=== PATIENT | female | born 1930 | race African-American/Black ===

== ENCOUNTER 2018-12-10 19:20 | Emergency (ER) | payer OTHER ==
[~2018-12-10] VITALS: Ht 167.6 cm; Wt 63.6 kg
[2018-12-10 19:24] VITALS: Ht 167.6 cm; Wt 63.6 kg
[2018-12-10] MEDS ORDERED: SOD CHLORIDE 0.9% 1,000 ML IV STA (19:27)
[2018-12-10] MEDS ORDERED: MECLIZINE 12.5 MG TAB PO ONE (19:30)
[2018-12-10] MEDS ORDERED: MECL12.574 PO (21:49)
--- NOTE | 2018-12-10 21:52 | ERD ---
ER Documentation Chief Complaint Chief Complaint [id number],from home,dizziness,denies NV,WARE,SOB,numbness,pain,hx HTN HPI She is a an 88-year-old female who was brought in by ambulance for dizziness. The patient's sugar was within normal limits by paramedics. She said that it started suddenly at 1730. She said the dizziness is now gone but she was still feeling some nausea. When she had the dizziness she felt like the room was s pinning. She was given Zofran by paramedics. She lives with her daughter. Upon review of old medical records this is the patient's first visit to the emergency department. She does not remember the name of her primary doctor. ROS All systems reviewed and are negative except as per history of present illness. Medications Home Meds Active Scripts Meclizine Hcl* (Antivert*) 12.5 Mg Tab, 25 MG PO Q6H PRN for DIZZINESS, #20 TAB Prov:EULALIA COOK MD 12/10/18 Allergies Allergies: Coded Allergies: No Known Allergy (Unverified , 12/10/18) PMhx/Soc History of Surgery: Yes (KNEE SURGERY) Anesthesia Reaction: No Hx Neurological Disorder: Yes (ALZHEIMERS) Hx Respiratory Disorders: No Hx Cardiac Disorders: Yes (HTN) Hx Psychiatric Problems: No Hx Miscellaneous Medical Probl: No Hx Alcohol Use: No Hx Substance Use: No Hx Tobacco Use: No Smoking Status: Never smoker Physical Exam Vitals Vital Signs Date Temp Pulse Resp B/P (MAP) Pulse Ox O2 O2 Flow FiO2 Time Delivery Rate 12/10/18 74 14 149/69 100 Room Air 20:57 (95) 12/10/18 97.6 80 18 145/70 100 19:24 (95) Physical Exam Const: No acute distress Head: Atraumatic Eyes: Normal Conjunctiva ENT: Normal External Ears, Nose and Mouth. Neck: Full range of motion. No meningismus. Resp: Clear to auscultation bilaterally Cardio: Regular rate and rhythm, no murmurs Abd: Soft, non tender, non distended. Normal bowel sounds Skin: No petechiae or rashes Back: No midline or flank tenderness Ext: No cyanosis, or edema Neur: Awake and alert Psych: Normal Mood and Affect Result Diagram: 12/10/18205712/10/182057 Results 24 hrs Laboratory Tests Test 5/6/19 20:58 White Blood Count 7.8 10^3/ul Red Blood Count 3.85 10^6/ul Hemoglobin 12.0 g/dl Hematocrit 36.4 % Mean Corpuscular Volume 94.5 fl Mean Corpuscular Hemoglobin 31.2 pg Mean Corpuscular Hemoglobin Concent 33.0 g/dl Red Cell Distribution Width 12.6 % Platelet Count 168 10^3/UL Mean Platelet Volume 9.8 fl Immature Granulocytes % 0.400 % Neutrophils % 76.7 % Lymphocytes % 14.9 % Monocytes % 6.1 % Eosinophils % 1.3 % Basophils % 0.6 % Nucleated Red Blood Cells % 0.0 /100WBC Immature Granulocytes # 0.030 10^3/ul Neutrophils # 6.0 10^3/ul Lymphocytes # 1.2 10^3/ul Monocytes # 0.5 10^3/ul Eosinophils # 0.1 10^3/ul Basophils # 0.1 10^3/ul Nucleated Red Blood Cells # 0.0 10^3/ul Prothrombin Time 12.8 Sec Prothrombin Time Ratio 1.0 INR International Normalized Ratio 0.95 Activated Partial Thromboplast Time 29.3 Sec Urine Color YELLOW Urine Clarity SLIGHTLY CLOUDY Urine pH 6.0 Urine Specific [place] 1.012 Urine Ketones TRACE mg/dL Urine Nitrite NEGATIVE mg/dL Urine Bilirubin NEGATIVE mg/dL Urine Urobilinogen NEGATIVE mg/dL Urine Leukocyte Esterase 2+ [place]/ul Urine Microscopic RBC 2 /HPF Urine Microscopic WBC 18 /HPF Urine Squamous Epithelial Cells MODERATE /HPF Urine Bacteria FEW /HPF Urine Hemoglobin NEGATIVE mg/dL Urine Glucose NEGATIVE mg/dL Urine Total Protein NEGATIVE mg/dl Sodium Level 142 mmol/L Potassium Level 3.8 mmol/L Chloride Level 107 mmol/L Carbon Dioxide Level 26 mmol/L Anion Gap 9 Blood Urea Nitrogen 23 mg/dl Creatinine 1.16 mg/dl Est Glomerular Filtrat Rate mL/min mL/min Glucose Level 137 mg/dl Hemoglobin A1c 5.2 % Calcium Level 9.8 mg/dl Troponin I < 0.012 ng/ml Triglycerides Level 53 mg/dl Cholesterol Level 188 mg/dl LDL Cholesterol, Calculated 121 mg/dl HDL Cholesterol 56 mg/dl Cholesterol/HDL Ratio 3.3 RATIO Current Medications Medications Dose Sig/Parker Start Time Status Last (Trade) Ordered Route PRN Stop Time Admin Dose Reason Admin Meclizine 25 mg ONCE ONCE 12/10/18 DC 12/10/18 HCl PO 19:30 12/10/18 20:51 (Antivert) 19:31 Sodium 1,000 ml @ Q1H STAT 12/10/18 DC 12/10/18 Chloride 1,000 mls/hr IV 19:27 12/10/18 19:27 20:26 Procedures/MDM EKG read by me: Rate/Rhythm: First-degree AV block at a rate of 77 Intervals: Prolonged GA interval Impression: First-degree AV block without ischemia CT brain negative per radiology. Chest x-ray negative per radiology. Patient is an 88-year-old female who presents with dizziness. Her symptoms are consistent with vertigo. Laboratory studies are basically negative. CT scan shows no sign of brain mass or hemorrhage. At this point I doubt stroke, int rarenal hemorrhage, intracranial mass, or significant left leg abnormality. I doubt acute coronary syndrome. The patient will be discharged home but will need to follow-up closely with the primary doctor within 24 to 48 hours. A prescription for meclizine will be given for symptomatic relief. Departure Diagnosis: Primary Impression: Dizziness Condition: Fair Patient Instructions: Dizziness, Unk Cause Referrals: Your doctor Additional Instructions: Call your primary care doctor TOMORROW for an appointment during the next 1-2 days.See the doctor sooner or return here if your condition worsens before your appointment time. EULALIA COOK MD December 10, 2018 21:52
[2018-12-10] MEDS ORDERED: SPIR50TA PO (22:01)
[2018-12-10] MEDS ORDERED: AMLO-147 PO (22:01)
[2018-12-10 22:03] VITALS: BP 145/78; PULSE 78; RESP 17
== END 2018-12-10 22:16 | disposition home or self-care (01) ==
LOC: E/R 19:20
DX: R42 Dizziness and giddiness (principal); I10 Essential (primary) hypertension
CPT/HCPCS: 36415; 70450; 71045; 80048; 80061; 80307; 81001; 83036; 84484; 85025; 85610; 85730; 93005; 96360; 96361; 99285; J7030